=== PATIENT | female | born 1975 | race African-American/Black ===

== ENCOUNTER 2018-04-27 01:19 | Emergency (ER) | payer OTHER ==
[~2018-04-27] VITALS: Ht 162.6 cm; Wt 83.9 kg
[~2018-04-27 01:19] MED LIST: HYDROCHLOROTHIA25 M1; LABETALOL PO; NORCO 5-325 TA1 EACH PO; PRENATAL
[2018-04-27] MEDS ORDERED: NAPROSYN500 MG PO (02:18)
[2018-04-27] MEDS ORDERED: MEDROLDOSEPACK PO (02:18)
[2018-04-27] MEDS ORDERED: ULTRAM 50MG TAB50 MG PO (02:18)
[2018-04-27] MEDS ORDERED: NORFLEX100 MG PO (02:18)
[2018-04-27 02:39] VITALS: BP 123/78
== END 2018-04-27 02:40 | disposition home or self-care (01) ==
LOC: ER 01:19
DX: M54.41 Lumbago with sciatica, right side (principal); I10 Essential (primary) hypertension; F41.9 Anxiety disorder, unspecified

== ENCOUNTER 2018-05-31 15:23 | Emergency (ER) | payer OTHER ==
[~2018-05-31] VITALS: Ht 160 cm; Wt 72.6 kg
[~2018-05-31 15:23] MED LIST changes: +MEDROLDOSEPACK PO; +NAPROSYN500 MG PO; +NORFLEX100 MG PO; +ULTRAM 50MG TAB50 MG PO
[2018-05-31] MEDS ORDERED: MOBIC7.5 MG PO ×2 (17:19→17:31)
[2018-05-31] MEDS ORDERED: NORCO 5-325 TA1 EACH PO (17:38)
[2018-05-31 17:44] VITALS: BP 142/94
== END 2018-05-31 17:46 | disposition home or self-care (01) ==
LOC: ER 15:23
DX: S86.912A Strain of unspecified muscle(s) and tendon(s) at lower leg level, left leg, initial encounter (principal); I10 Essential (primary) hypertension; X58.XXXA Exposure to other specified factors, initial encounter; Y93.89 Activity, other specified; Y92.89 Other specified places as the place of occurrence of the external cause; Y99.8 Other external cause status